=== PATIENT | male | born 1935 | race Caucasian/White ===

== ENCOUNTER 2017-11-15 07:54 | Inpatient (IN) | payer MEDICARE ==
[~2017-11-15] VITALS: Ht 193 cm; Wt 129.1 kg
[~2017-11-15 07:54] MED LIST: DONE10TA36 PO; FURO40TA7 PO; LISI2.5T2 PO; LORA10CA PO; METO-409 PO; [UNRECOGNIZED DRUG - CODE] PO; blood pressure PO; water pill PO
[2017-11-15 08:38] LABS: BASOPHILS % (AUTO) 0.4 % (0.0-5.0); EOSINOPHILS % (AUTO) 0.3 % (0.0-8.0); HEMATOCRIT 38.6 % (42-54); MEAN CORPUSCULAR HEMOGLOBIN 31.5 pg (27.0-33.0); MEAN CORPUSCULAR VOLUME 92.6 fL (79-99); MONOCYTES % (AUTO) 9.2 % (3.0-13.0); NEUTROPHILS % (AUTO) 81.7 % (40.0-77.0); PLATELET COUNT (AUTO) 117 K/uL (130-400); RED BLOOD CELL COUNT(AUTO) 4.17 MIL/uL (4.50-6.20); RED CELL DISTRIBUTION WIDTH 13.7 % (11.0-15.5); WHITE BLOOD COUNT (AUTO) 5.2 K/uL (4.8-10.8)
[2017-11-15 08:45] LABS: CREATININE 0.9 mg/dL (0.5-1.5); LYMPHOCYTES % (AUTO) 8.4 % (21.0-51.0); POTASSIUM 4.1 mmol/L (3.5-5.1)
[2017-11-15 08:48] LABS: INR 1.02 (0.85-1.15); PARTIAL THROMBOPLASTIN TIME 31.1 SEC (26.3-35.5); PROTHROMBIN TIME 10.7 SEC (9.6-11.6)
[2017-11-15 09:00] LABS: ALBUMIN 3.4 g/dL (3.5-5.0); BILIRUBIN,TOTAL 1.2 mg/dL (0.2-1.0); CREATINE KINASE MB 0.5 ng/mL (0.5-3.6); TOTAL PROTEIN, SERUM 6.9 g/dL (6.0-8.3); TROPONIN I 0.08 ng/mL (0.00-0.06)
[2017-11-15] MEDS ORDERED: MORPHINE SULFATE 2 MG/ML 1ML SYG ONE ×2 (09:52→11:52)
[2017-11-15] MEDS ORDERED: ACETAMINOPHEN 325 MG TAB ONE (09:52)
[2017-11-15] MEDS ORDERED: SODIUM CHLORIDE 0.9% 1000ML 1,000 ML IV ONE (09:52)
[2017-11-15 12:24] LABS: APPEARANCE,URINE CLEAR (CLEAR); BILIRUBIN,URINE SMALL (NEGATIVE); COLOR,URINE YELLOW (YELLOW); GLUCOSE, URINE (UA) NEGATIVE (NEGATIVE); KETONES,URINE 15 mg/dL (NEGATIVE); LEUKOCYTE ESTERASE ,URINE NEGATIVE (NEGATIVE); NITRATE,URINE NEGATIVE (NEGATIVE); OCCULT BLOOD,URINE TRACE-LYSED (NEGATIVE); PROTEIN,URINE 30 (NEGATIVE)
[2017-11-15 12:31] LABS: BACTERIA,URINE Rare /HPF (None Seen); MUCUS,URINE Few LPF (None Seen); RBC,URINE 0-1 /HPF (0-1); SQUAMOUS EPITHELIAL CELL,UR Rare /LPF (0-2); WBC,URINE None Seen /HPF (0-1)
[2017-11-15] MEDS ORDERED: LIDOCAINE HCL-MPF 1% 2ML VIAL IVP PRN (13:45)
[2017-11-15] MEDS ORDERED: LACTULOSE 20 GM/30 ML UDCUP PO PRN (13:45)
[2017-11-15] MEDS ORDERED: NITROGLYCERIN 0.4 MG SL TAB SL PRN (13:45)
[2017-11-15] MEDS ORDERED: POTASSIUM CHLORIDE 20MEQ/100ML 100 ML IV PRN (13:45)
[2017-11-15] MEDS ORDERED: ONDANSETRON HCL 4 MG/2 ML VIAL IV PRN (13:45)
[2017-11-15] MEDS ORDERED: MAG HYDROX/AL HYDROX/SIMETH ES 30 ML SUSP UDCUP PO PRN (13:45)
[2017-11-15] MEDS ORDERED: HYDRALAZINE HCL 20 MG/ML VIAL IV PRN (13:45)
[2017-11-15] MEDS ORDERED: POTASSIUM CHLORIDE 10% ELIXIR 20 MEQ/15 ML UDCUP PO PRN (13:45)
[2017-11-15] MEDS ORDERED: MORPHINE SULFATE 2 MG/ML 1ML SYG IV PRN (13:45)
[2017-11-15] MEDS ORDERED: ACETAMINOPHEN 325 MG TAB PO PRN ×2 (13:45)
[2017-11-15] MEDS ORDERED: ACETAMINOPHEN-CODEINE 300/30MG TAB PO PRN (13:45)
[2017-11-15] MEDS ORDERED: POTASSIUM CHLORIDE 20 MEQ ERTAB PO PRN (13:45)
[2017-11-15] MEDS ORDERED: MORPHINE SULFATE 4 MG/1ML SYG IV PRN (13:45)
[2017-11-15 17:34] VITALS: BP 112/74
[2017-11-15] MEDS: IPRATROPIUM/ALBUTEROL SULFATE 3 ML SOLUTION IH SCH (18:00)
[2017-11-15] MEDS ORDERED: METO-482 PO (19:57)
[2017-11-15] MEDS ORDERED: FURO40TA7 PO (19:57)
[2017-11-15] MEDS ORDERED: CETI10CA5 PO (19:57)
[2017-11-15] MEDS ORDERED: MEMA21CA PO (19:57)
[2017-11-15] MEDS ORDERED: DONE10TA8 PO (19:57)
[2017-11-15] MEDS ORDERED: LOSA25TA2 PO (19:57)
[2017-11-15 20:00] VITALS: BP 139/80
[2017-11-15] MEDS: FAMOTIDINE/PF 20 MG/2 ML VIAL IV SCH (20:21)
[2017-11-15] MEDS: AZITHROMYCIN 500MG+NS 250ML 250 ML IV SCH (20:21)
[2017-11-15] MEDS ORDERED: KETOROLAC TROMETHAMINE 15MG/ML ONE (21:59)
[2017-11-15] MEDS ORDERED: KETOROLAC TROMETHAMINE 15MG/ML IV SCH (22:00)
[2017-11-15 22:44] LABS: CREATINE KINASE MB 1.6 ng/mL (0.5-3.6); TROPONIN I 0.07 ng/mL (0.00-0.06)
[2017-11-16] VITALS (7 sets, daily range): BP systolic 102–142; BP diastolic 66–85
[2017-11-16] MEDS: GUAIFENESIN-DM 200/20 MG 10 ML PO PRN ×3 (04:10→20:53)
[2017-11-16] MEDS: IPRATROPIUM/ALBUTEROL SULFATE 3 ML SOLUTION IH SCH ×4 (06:00→18:58)
[2017-11-16] MEDS: FAMOTIDINE/PF 20 MG/2 ML VIAL IV SCH ×2 (09:32→20:53)
[2017-11-16] MEDS: MEMANTINE HCL 5 MG TABLET PO SCH ×2 (13:22→20:54)
[2017-11-16] MEDS: ACETAMINOPHEN-CODEINE 300/30MG TAB PO PRN ×2 (13:22→20:54)
[2017-11-16] MEDS: AZITHROMYCIN 500MG+NS 250ML 250 ML IV SCH (13:22)
[2017-11-16] MEDS: HALOPERIDOL LACTATE 5 MG/ML VIAL IV PRN ×2 (14:06→22:46)
[2017-11-16] MEDS: METOPROLOL TARTRATE 50 MG TAB PO SCH (20:53)
[2017-11-17] MEDS: IPRATROPIUM/ALBUTEROL SULFATE 3 ML SOLUTION IH SCH ×5 (00:04→21:51)
[2017-11-17 04:00] VITALS: BP 131/75
[2017-11-17 06:43] LABS: POTASSIUM 4.3 mmol/L (3.5-5.1)
[2017-11-17 06:50] LABS: CREATININE 0.8 mg/dL (0.5-1.5)
[2017-11-17 07:15] VITALS: BP 144/78
[2017-11-17] MEDS: FAMOTIDINE/PF 20 MG/2 ML VIAL IV SCH ×2 (09:57→19:34)
[2017-11-17] MEDS: FUROSEMIDE 40 MG TABLET PO SCH (09:58)
[2017-11-17] MEDS: LOSARTAN 50 MG TABLET PO SCH (09:58)
[2017-11-17] MEDS: DONEPEZIL HCL 5 MG TAB PO SCH (09:58)
[2017-11-17] MEDS: MEMANTINE HCL 5 MG TABLET PO SCH ×3 (09:58→19:34)
[2017-11-17] MEDS: CETIRIZINE HCL 5 MG TABLET PO SCH (09:58)
[2017-11-17] MEDS: METOPROLOL TARTRATE 50 MG TAB PO SCH ×2 (09:58→19:34)
[2017-11-17] MEDS: GUAIFENESIN-DM 200/20 MG 10 ML PO PRN ×4 (10:02→23:31)
[2017-11-17 11:30] VITALS: BP 131/70
[2017-11-17] MEDS ORDERED: MAGNESIUM HYDROXIDE 30 ML/UDCUP PO PRN (11:30)
[2017-11-17] MEDS: AZITHROMYCIN 500MG+NS 250ML 250 ML IV SCH (14:25)
[2017-11-17 16:00] VITALS: BP 132/76
[2017-11-17 19:00] VITALS: BP 135/87
[2017-11-17 23:00] VITALS: BP 130/73
[2017-11-17] MEDS: HALOPERIDOL LACTATE 5 MG/ML VIAL IV PRN (23:25)
[2017-11-18 03:00] VITALS: BP 148/98
[2017-11-18] MEDS: GUAIFENESIN-DM 200/20 MG 10 ML PO PRN (03:43)
[2017-11-18] MEDS: ACETAMINOPHEN-CODEINE 300/30MG TAB PO PRN (03:44)
[2017-11-18 07:45] LABS: HEMATOCRIT 34.4 % (42-54); MEAN CORPUSCULAR HEMOGLOBIN 31.3 pg (27.0-33.0); MEAN CORPUSCULAR HGB CONC 33.9 g/dL (32.0-36.0); MEAN CORPUSCULAR VOLUME 92.5 fL (79-99); NUCLEATED RED BLOOD CELLS 0.1 % (0.0-0.19); PLATELET COUNT (AUTO) 106 K/uL (130-400); RED BLOOD CELL COUNT(AUTO) 3.72 MIL/uL (4.50-6.20); RED CELL DISTRIBUTION WIDTH 13.8 % (11.0-15.5); WHITE BLOOD COUNT (AUTO) 3.4 K/uL (4.8-10.8)
[2017-11-18 07:59] LABS: CREATININE 0.7 mg/dL (0.5-1.5); POTASSIUM 4.2 mmol/L (3.5-5.1)
[2017-11-18 08:00] VITALS: BP 128/73
[2017-11-18] MEDS ORDERED: ENOXAPARIN SODIUM 40 MG/0.4 ML SYRINGE SQ SCH (09:00)
[2017-11-18] MEDS: CETIRIZINE HCL 5 MG TABLET PO SCH (10:01)
[2017-11-18] MEDS: FUROSEMIDE 40 MG TABLET PO SCH (10:02)
[2017-11-18] MEDS: FAMOTIDINE/PF 20 MG/2 ML VIAL IV SCH ×2 (10:02→20:34)
[2017-11-18] MEDS: MEMANTINE HCL 5 MG TABLET PO SCH ×3 (10:02→20:34)
[2017-11-18] MEDS: LOSARTAN 50 MG TABLET PO SCH (10:02)
[2017-11-18] MEDS: METOPROLOL TARTRATE 50 MG TAB PO SCH ×2 (10:02→20:34)
[2017-11-18] MEDS: DONEPEZIL HCL 5 MG TAB PO SCH (10:03)
[2017-11-18 12:40] VITALS: BP 132/78
[2017-11-18] MEDS: IPRATROPIUM/ALBUTEROL SULFATE 3 ML SOLUTION IH SCH ×2 (13:51→21:43)
[2017-11-18] MEDS: AZITHROMYCIN 500MG+NS 250ML 250 ML IV SCH (15:12)
[2017-11-18 16:00] VITALS: BP 136/78
[2017-11-18 19:59] VITALS: BP 113/72
[2017-11-18 23:40] VITALS: BP 120/77
[2017-11-19 04:22] VITALS: BP 120/78
[2017-11-19 04:39] LABS: CREATININE 0.9 mg/dL (0.5-1.5); POTASSIUM 3.8 mmol/L (3.5-5.1)
[2017-11-19 04:42] LABS: HEMATOCRIT 32.4 % (42-54); MEAN CORPUSCULAR HEMOGLOBIN 32.9 pg (27.0-33.0); MEAN CORPUSCULAR HGB CONC 35.9 g/dL (32.0-36.0); MEAN CORPUSCULAR VOLUME 91.6 fL (79-99); NUCLEATED RED BLOOD CELLS 0.1 % (0.0-0.19); PLATELET COUNT (AUTO) 106 K/uL (130-400); RED BLOOD CELL COUNT(AUTO) 3.54 MIL/uL (4.50-6.20); RED CELL DISTRIBUTION WIDTH 13.7 % (11.0-15.5); WHITE BLOOD COUNT (AUTO) 3.3 K/uL (4.8-10.8)
[2017-11-19] MEDS: IPRATROPIUM/ALBUTEROL SULFATE 3 ML SOLUTION IH SCH ×4 (07:40→23:40)
[2017-11-19 08:00] VITALS: BP 136/85
[2017-11-19] MEDS: CETIRIZINE HCL 5 MG TABLET PO SCH (08:21)
[2017-11-19] MEDS: MEMANTINE HCL 5 MG TABLET PO SCH ×3 (08:22→21:06)
[2017-11-19] MEDS: DONEPEZIL HCL 5 MG TAB PO SCH (08:22)
[2017-11-19] MEDS: METOPROLOL TARTRATE 50 MG TAB PO SCH ×2 (08:22→21:06)
[2017-11-19] MEDS: FAMOTIDINE/PF 20 MG/2 ML VIAL IV SCH ×2 (08:22→21:06)
[2017-11-19] MEDS: LOSARTAN 50 MG TABLET PO SCH (08:22)
[2017-11-19] MEDS: FUROSEMIDE 40 MG TABLET PO SCH (08:23)
[2017-11-19] MEDS: ACETAMINOPHEN-CODEINE 300/30MG TAB PO PRN (09:09)
[2017-11-19] MEDS ORDERED: FUROSEMIDE 10 MG/ML 4ML VIAL IV SCH (10:30)
[2017-11-19 11:42] VITALS: BP 96/53
[2017-11-19] MEDS: DOXYCYCLINE HYCLATE 100 MG TABLET PO SCH ×2 (12:12→21:06)
[2017-11-19] MEDS: METHYLPREDNISOLONE SOD SUCC 40MG/ML 1ML IVP SCH ×2 (12:17→18:55)
[2017-11-19] MEDS: AZITHROMYCIN 500MG+NS 250ML 250 ML IV SCH (13:46)
[2017-11-19 16:00] VITALS: BP 134/80
[2017-11-19 19:25] VITALS: BP 126/68
[2017-11-19] MEDS: GUAIFENESIN-DM 200/20 MG 10 ML PO PRN (21:18)
[2017-11-19 23:35] VITALS: BP 122/68
[2017-11-20] MEDS: METHYLPREDNISOLONE SOD SUCC 40MG/ML 1ML IVP SCH ×3 (02:45→18:35)
[2017-11-20 03:35] VITALS: BP 131/68
[2017-11-20 04:22] LABS: HEMATOCRIT 35.1 % (42-54); MEAN CORPUSCULAR HEMOGLOBIN 31.3 pg (27.0-33.0); MEAN CORPUSCULAR HGB CONC 34.5 g/dL (32.0-36.0); MEAN CORPUSCULAR VOLUME 90.9 fL (79-99); PLATELET COUNT (AUTO) 126 K/uL (130-400); RED BLOOD CELL COUNT(AUTO) 3.86 MIL/uL (4.50-6.20); RED CELL DISTRIBUTION WIDTH 13.9 % (11.0-15.5); WHITE BLOOD COUNT (AUTO) 2.9 K/uL (4.8-10.8)
[2017-11-20 04:30] LABS: B-TYPE NATRIURETIC PEPTIDE 135 pg/mL (0-100); CREATININE 1.1 mg/dL (0.5-1.5); POTASSIUM 4.2 mmol/L (3.5-5.1)
[2017-11-20 07:00] VITALS: BP 133/87
[2017-11-20] MEDS: IPRATROPIUM/ALBUTEROL SULFATE 3 ML SOLUTION IH SCH ×3 (07:15→21:52)
[2017-11-20] MEDS ORDERED: FUROSEMIDE 10 MG/ML 4ML VIAL ONE (09:09)
[2017-11-20] MEDS: DOXYCYCLINE HYCLATE 100 MG TABLET PO SCH ×2 (09:22→20:52)
[2017-11-20] MEDS: CETIRIZINE HCL 5 MG TABLET PO SCH (09:26)
[2017-11-20] MEDS: DONEPEZIL HCL 5 MG TAB PO SCH (09:26)
[2017-11-20] MEDS: ACETAMINOPHEN-CODEINE 300/30MG TAB PO PRN ×2 (09:26→18:34)
[2017-11-20] MEDS: LOSARTAN 50 MG TABLET PO SCH (09:27)
[2017-11-20] MEDS: MEMANTINE HCL 5 MG TABLET PO SCH ×3 (09:27→20:52)
[2017-11-20] MEDS: FUROSEMIDE 40 MG TABLET PO SCH (09:27)
[2017-11-20] MEDS: METOPROLOL TARTRATE 50 MG TAB PO SCH ×2 (09:28→20:52)
[2017-11-20] MEDS: FAMOTIDINE/PF 20 MG/2 ML VIAL IV SCH ×2 (09:28→20:52)
[2017-11-20] MEDS ORDERED: FUROSEMIDE 10 MG/ML 4ML VIAL IV SCH (09:30)
[2017-11-20 11:07] VITALS: BP 125/60
[2017-11-20] MEDS: AZITHROMYCIN 500MG+NS 250ML 250 ML IV SCH (13:37)
[2017-11-20 15:00] VITALS: BP 114/68
[2017-11-20 19:59] VITALS: BP 106/73
[2017-11-20 23:59] VITALS: BP 135/78
[2017-11-21] MEDS: METHYLPREDNISOLONE SOD SUCC 40MG/ML 1ML IVP SCH ×3 (03:06→21:29)
[2017-11-21 04:00] VITALS: BP 128/72
[2017-11-21 05:50] LABS: HEMATOCRIT 36.3 % (42-54); MEAN CORPUSCULAR HEMOGLOBIN 31.7 pg (27.0-33.0); MEAN CORPUSCULAR HGB CONC 34.8 g/dL (32.0-36.0); MEAN CORPUSCULAR VOLUME 91.3 fL (79-99); PLATELET COUNT (AUTO) 159 K/uL (130-400); RED BLOOD CELL COUNT(AUTO) 3.98 MIL/uL (4.50-6.20); RED CELL DISTRIBUTION WIDTH 13.8 % (11.0-15.5); WHITE BLOOD COUNT (AUTO) 7.9 K/uL (4.8-10.8)
[2017-11-21 06:00] LABS: CREATININE 0.9 mg/dL (0.5-1.5); POTASSIUM 4.5 mmol/L (3.5-5.1)
[2017-11-21 06:10] LABS: B-TYPE NATRIURETIC PEPTIDE 218 pg/mL (0-100)
[2017-11-21] MEDS: IPRATROPIUM/ALBUTEROL SULFATE 3 ML SOLUTION IH SCH ×3 (06:35→22:10)
[2017-11-21 08:00] VITALS: BP 131/78
[2017-11-21] MEDS: FAMOTIDINE/PF 20 MG/2 ML VIAL IV SCH ×2 (09:00→21:28)
[2017-11-21] MEDS: FUROSEMIDE 40 MG TABLET PO SCH (09:00)
[2017-11-21] MEDS: DONEPEZIL HCL 5 MG TAB PO SCH (09:42)
[2017-11-21] MEDS: MEMANTINE HCL 5 MG TABLET PO SCH ×3 (09:42→21:29)
[2017-11-21] MEDS: DOXYCYCLINE HYCLATE 100 MG TABLET PO SCH ×2 (09:42→21:29)
[2017-11-21] MEDS: CETIRIZINE HCL 5 MG TABLET PO SCH (09:42)
[2017-11-21] MEDS: METOPROLOL TARTRATE 50 MG TAB PO SCH ×2 (09:42→21:29)
[2017-11-21] MEDS: LOSARTAN 50 MG TABLET PO SCH (09:43)
[2017-11-21] MEDS: FUROSEMIDE 10 MG/ML 4ML VIAL IV SCH ×2 (09:52→21:28)
[2017-11-21 12:00] VITALS: BP 132/77
[2017-11-21] MEDS: AZITHROMYCIN 500MG+NS 250ML 250 ML IV SCH (14:27)
[2017-11-21 16:00] VITALS: BP 124/82
[2017-11-21 20:00] VITALS: BP 129/75
[2017-11-22] VITALS (7 sets, daily range): BP systolic 126–143; BP diastolic 73–93
[2017-11-22 05:05] LABS: POTASSIUM 4.1 mmol/L (3.5-5.1)
[2017-11-22] MEDS: IPRATROPIUM/ALBUTEROL SULFATE 3 ML SOLUTION IH SCH ×3 (07:19→22:59)
[2017-11-22] MEDS: LOSARTAN 50 MG TABLET PO SCH (10:16)
[2017-11-22] MEDS: METOPROLOL TARTRATE 50 MG TAB PO SCH ×2 (10:16→22:07)
[2017-11-22] MEDS: CETIRIZINE HCL 5 MG TABLET PO SCH (10:16)
[2017-11-22] MEDS: DOXYCYCLINE HYCLATE 100 MG TABLET PO SCH ×2 (10:16→22:07)
[2017-11-22] MEDS: FAMOTIDINE/PF 20 MG/2 ML VIAL IV SCH ×2 (10:16→22:06)
[2017-11-22] MEDS: METHYLPREDNISOLONE SOD SUCC 40MG/ML 1ML IVP SCH ×2 (10:16→22:07)
[2017-11-22] MEDS: DONEPEZIL HCL 5 MG TAB PO SCH (10:16)
[2017-11-22] MEDS: FUROSEMIDE 10 MG/ML 4ML VIAL IV SCH ×2 (10:17→22:06)
[2017-11-22] MEDS ORDERED: MEMANTINE HCL 5 MG TABLET PO ONE (10:24)
[2017-11-22] MEDS: MEMANTINE HCL 5 MG TABLET PO SCH ×3 (10:25→22:07)
[2017-11-22] MEDS ORDERED: IOPAMIDOL-370 100 ML VIAL IV ONE (11:20)
[2017-11-22] MEDS: ENOXAPARIN SODIUM 120 MG/0.8ML SQ SCH ×2 (14:11→22:06)
[2017-11-23 04:00] VITALS: BP 117/86
[2017-11-23] MEDS: IPRATROPIUM/ALBUTEROL SULFATE 3 ML SOLUTION IH SCH ×3 (06:28→23:10)
[2017-11-23 07:20] LABS: POTASSIUM 3.8 mmol/L (3.5-5.1)
[2017-11-23 08:00] VITALS: BP 123/69
[2017-11-23] MEDS: ENOXAPARIN SODIUM 120 MG/0.8ML SQ SCH (09:00)
[2017-11-23] MEDS: METHYLPREDNISOLONE SOD SUCC 40MG/ML 1ML IVP SCH ×2 (10:15→20:54)
[2017-11-23] MEDS: FUROSEMIDE 10 MG/ML 4ML VIAL IV SCH ×2 (10:15→20:55)
[2017-11-23] MEDS: CETIRIZINE HCL 5 MG TABLET PO SCH (10:16)
[2017-11-23] MEDS: DOXYCYCLINE HYCLATE 100 MG TABLET PO SCH ×2 (10:16→20:55)
[2017-11-23] MEDS: LOSARTAN 50 MG TABLET PO SCH (10:16)
[2017-11-23] MEDS: FAMOTIDINE/PF 20 MG/2 ML VIAL IV SCH ×2 (10:17→20:55)
[2017-11-23] MEDS: METOPROLOL TARTRATE 50 MG TAB PO SCH ×2 (10:17→20:55)
[2017-11-23] MEDS: DONEPEZIL HCL 5 MG TAB PO SCH (10:17)
[2017-11-23] MEDS: MEMANTINE HCL 5 MG TABLET PO SCH ×3 (10:17→20:55)
[2017-11-23 12:00] VITALS: BP 118/72
[2017-11-23 16:00] VITALS: BP 114/71
[2017-11-23 20:00] VITALS: BP 118/61
[2017-11-23] MEDS: APIXABAN 5 MG TABLET PO SCH (20:55)
[2017-11-23 23:45] VITALS: BP 126/64
[2017-11-24 03:54] VITALS: BP 118/71
[2017-11-24 06:05] LABS: MEAN CORPUSCULAR HEMOGLOBIN 30.8 pg (27.0-33.0); MEAN CORPUSCULAR HGB CONC 33.7 g/dL (32.0-36.0); MEAN CORPUSCULAR VOLUME 91.3 fL (79-99); PLATELET COUNT (AUTO) 160 K/uL (130-400); RED BLOOD CELL COUNT(AUTO) 4.28 MIL/uL (4.50-6.20); RED CELL DISTRIBUTION WIDTH 13.8 % (11.0-15.5); WHITE BLOOD COUNT (AUTO) 7.5 K/uL (4.8-10.8)
[2017-11-24 06:15] LABS: CREATININE 1.1 mg/dL (0.5-1.5); POTASSIUM 3.9 mmol/L (3.5-5.1)
[2017-11-24] MEDS: IPRATROPIUM/ALBUTEROL SULFATE 3 ML SOLUTION IH SCH ×2 (06:51→13:24)
[2017-11-24 08:00] VITALS: BP 133/67
[2017-11-24] MEDS: CETIRIZINE HCL 5 MG TABLET PO SCH (08:57)
[2017-11-24] MEDS: METOPROLOL TARTRATE 50 MG TAB PO SCH (08:57)
[2017-11-24] MEDS: LOSARTAN 50 MG TABLET PO SCH (08:58)
[2017-11-24] MEDS: DONEPEZIL HCL 5 MG TAB PO SCH (08:58)
[2017-11-24] MEDS: FAMOTIDINE/PF 20 MG/2 ML VIAL IV SCH (08:59)
[2017-11-24] MEDS: FUROSEMIDE 10 MG/ML 4ML VIAL IV SCH (08:59)
[2017-11-24] MEDS: APIXABAN 5 MG TABLET PO SCH (08:59)
[2017-11-24] MEDS: MEMANTINE HCL 5 MG TABLET PO SCH ×2 (11:36→13:39)
[2017-11-24 12:00] VITALS: BP 123/74
[2017-11-24] MEDS ORDERED: DOXYCYCLINE 100MG+NS 250ML 250 ML IV SCH (13:00)
== END 2017-11-24 15:10 | DRG 291 ==
LOC: EDH 07:54 → OBSVTOIN 12:43 → EDHIP 12:43 → 3CH 16:48
PROVIDERS: ADMIT Internal Medicine; ATTEND Internal Medicine
DX: I11.0 Hypertensive heart disease with heart failure (principal); I26.99 Other pulmonary embolism without acute cor pulmonale; D69.6 Thrombocytopenia, unspecified; I50.22 Chronic systolic (congestive) heart failure; J20.9 Acute bronchitis, unspecified; B97.81 Human metapneumovirus as the cause of diseases classified elsewhere; W06.XXXA Fall from bed, initial encounter; F02.80 Dementia in other diseases classified elsewhere, unspecified severity, without behavioral disturbance, psychotic disturbance, mood disturbance, and anxiety; M54.5 Low back pain; Z85.3 Personal history of malignant neoplasm of breast; K59.00 Constipation, unspecified; G30.9 Alzheimer's disease, unspecified; R09.02 Hypoxemia; G47.30 Sleep apnea, unspecified; E66.9 Obesity, unspecified; G89.4 Chronic pain syndrome; Z90.49 Acquired absence of other specified parts of digestive tract; Z88.0 Allergy status to penicillin; Z68.34 Body mass index [BMI] 34.0-34.9, adult; Y93.89 Activity, other specified; Y99.8 Other external cause status; Z79.899 Other long term (current) drug therapy; Z85.46 Personal history of malignant neoplasm of prostate; Y92.003 Bedroom of unspecified non-institutional (private) residence as the place of occurrence of the external cause
CPT/HCPCS: 36415; 70450; 71010; 71045; 71250; 71275; 72131; 80048; 80053; 81001; 82550; 82553; 83605; 83874; 83880; 84484; 85025; 85027; 85610; 85651; 85730; 87040; 87088; 87633; 87804; 92610; 93005; 93306; 93970; 94640; 94664; 97039; J0456; J1630; J1650; J1885; J1940; J2920; J3490; J7030; Q9967